=== PATIENT | male | born 1955 | race Asian ===

== ENCOUNTER 2022-06-24 14:23 | Inpatient (IN) | payer MEDICARE ==
[2022-06-24 15:42] LABS: #Lymphocytes 1.3 thou/uL (1.20-3.40); #Monocytes 0.8 thou/uL (0.11-0.59); #Neutrophils 8.6 thou/uL (1.40-6.50); %Basophils 0.3 % (0.0-1.0); %Eosinophils 0.2 % (0.0-10.0); %Lymphocytes 11.8 % (21.0-51.0); %Monocytes 7.6 % (0.0-10.0); %Neutrophils 80.1 % (42.0-75.0); Hemoglobin 15.3 g/dL (14.0-18.0); Mean Corpuscular Hemoglobin 30.8 pg (27.0-31.0); Mean Corpuscular Volume 93.3 fL (78.0-98.0); Mean Platelet Volume 7.9 fL (7.4-10.4); Platelet Count 175 thou/uL (130-400); RBC Distribution Width 12.3 % (11.5-14.5); Red Blood Cell (RBC) Count 4.97 mill/uL (4.70-6.10); White Blood Cell (WBC) Count 10.7 thou/uL (4.8-10.8)
[2022-06-24 15:47] LABS: Bilirubin Negative (Negative); Blood, Urine Negative (Negative); Clarity Clear (Clear); Glucose, Urine (Dipstick) Normal (Negative); Ketone, Urine 20 mg/dL (Negative); Leukocyte Negative Leu/uL (Negative); Nitrite Negative (Negative); Protein, Urine (Dipstick) 10 mg/dL (Neg-Trace); Specific Gravity, Urine 1.028 (1.002-1.036); Urobilinogen Normal mg/dL (Less than 2); pH, Urine 5.5 (5.0-9.0)
[2022-06-24] MEDS ORDERED: Ketorolac Tromethamine 30 MG/ML VIAL ONE (15:57)
[2022-06-24 16:05] LABS: ALT (SGPT) 22 U/L (8-55); AST (SGOT) 24 U/L (5-34); Albumin 4.2 g/dL (3.4-4.8); Alkaline Phosphatase 58 U/L (40-110); Anion Gap 14 mmol/L (10-20); BUN (Urea Nitrogen) 15 mg/dL (8.4-25.7); Bilirubin, Total 1.1 mg/dL (0.2-1.2); Calc. Creatinine Clearance 0 mL/min (70-130); Calcium 8.8 mg/dL (7.8-10.44); Carbon Dioxide 23 mmol/L (23-31); Chloride 104 mmol/L (98-107); Estimated GFR 56; Glucose 123 mg/dL (80-115); Potassium 3.9 mmol/L (3.5-5.1); Protein, Total 7.2 g/dL (5.8-8.1); Sodium 137 mmol/L (136-145)
[2022-06-24] MEDS ORDERED: Ondansetron PF 4 MG/2 ML Vial IVP PRN (17:18)
[2022-06-24] MEDS ORDERED: Acetaminophen 325 MG TAB PO PRN (17:18)
[2022-06-24] MEDS ORDERED: Ondansetron ODT 4 MG TAB PO PRN (17:18)
[2022-06-24 17:19] LABS: SARS-CoV-2 NAA Rapid Test Not Detected (NotDetected)
[2022-06-24] MEDS ORDERED: diphenhydrAMINE 50 MG/ML VIAL IVP PRN (17:26)
[2022-06-24] MEDS ORDERED: hydrALAZINE 20 MG/ML VIAL SLOW IVP PRN ×2 (17:28)
[2022-06-24 18:17] LABS: PTT 31.4 sec (22.9-36.1); Prothrombin Time 13.4 sec (12.0-14.7)
[2022-06-24] MEDS: cefTRIAXone\\ROCEPHIN 1 GM in Sodium Chloride 0.9% 100 ML IVPB SCH (20:20)
[2022-06-24] MEDS: Sodium Chloride 0.9% 1,000 ML IV SCH (20:20)
[2022-06-24] MEDS: Tamsulosin HCl 0.4 MG CAP PO SCH (20:21)
[2022-06-24] MEDS: Famotidine 20 MG TAB PO SCH (20:21)
[2022-06-24] MEDS: Morphine 2 MG/ML VIAL SLOW IVP PRN (20:21)
[2022-06-24] MEDS: Famotidine/PF 20 mg/2ml Vial SLOW IVP SCH (20:23)
[2022-06-25 02:22] VITALS: BMI 29.7
[2022-06-25] MEDS: Sodium Chloride 0.9% 1,000 ML IV SCH ×3 (04:43→19:56)
[2022-06-25 05:25] LABS: #Eosinphils 0.2 thou/uL (0.0-0.7); #Lymphocytes 1.5 thou/uL (1.20-3.40); #Monocytes 1.1 thou/uL (0.11-0.59); #Neutrophils 5.5 thou/uL (1.40-6.50); %Basophils 0.6 % (0.0-1.0); %Eosinophils 2.6 % (0.0-10.0); %Monocytes 12.7 % (0.0-10.0); %Neutrophils 66.1 % (42.0-75.0); Hemoglobin 13.5 g/dL (14.0-18.0); Mean Corpuscular HGB CONC 32.5 g/dL (32.0-36.0); Mean Corpuscular Hemoglobin 30.8 pg (27.0-31.0); Mean Corpuscular Volume 94.7 fL (78.0-98.0); Mean Platelet Volume 7.6 fL (7.4-10.4); Platelet Count 153 thou/uL (130-400); RBC Distribution Width 12.4 % (11.5-14.5); Red Blood Cell (RBC) Count 4.38 mill/uL (4.70-6.10); White Blood Cell (WBC) Count 8.4 thou/uL (4.8-10.8)
[2022-06-25 05:54] LABS: Anion Gap 11 mmol/L (10-20); BUN (Urea Nitrogen) 17 mg/dL (8.4-25.7); Calc. Creatinine Clearance 70 mL/min (70-130); Calcium 8.1 mg/dL (7.8-10.44); Carbon Dioxide 24 mmol/L (23-31); Chloride 108 mmol/L (98-107); Estimated GFR 63; Glucose 101 mg/dL (80-115); Sodium 139 mmol/L (136-145)
[2022-06-25] MEDS ORDERED: Midazolam HCl 2 mg/2 ml Vial ONE (07:11)
[2022-06-25] MEDS ORDERED: fentaNYL Citrate/PF 100 MCG/2 ML SYRINGE ONE (07:11)
[2022-06-25] MEDS ORDERED: HYDROmorphone 2 MG/ML VIAL ONE ×2 (07:12→08:04)
[2022-06-25] MEDS ORDERED: Iopamidol 30 ML ONE (08:06)
[2022-06-25] MEDS ORDERED: Levofloxacin 500 mg/D5W 100 ml Premix Bag ONE (08:09)
[2022-06-25] MEDS ORDERED: Glycopyrrolate 0.2 MG/ML 5 ML SYRINGE ONE (08:21)
[2022-06-25] MEDS ORDERED: Rocuronium Bromide 10 MG/ML (10ML VIAL) ONE (08:21)
[2022-06-25] MEDS ORDERED: Lidocaine 1% PF 5 ML VIAL ONE (08:21)
[2022-06-25] MEDS ORDERED: PROPOFOL 200 MG/20 ML VIAL ONE (08:21)
[2022-06-25] MEDS ORDERED: Ketorolac Tromethamine 30 MG/ML VIAL ONE (08:21)
[2022-06-25] MEDS ORDERED: Ondansetron PF 4 MG/2 ML Vial ONE (08:21)
[2022-06-25] MEDS ORDERED: Dexamethasone 20 MG/5 ML VIAL ONE (08:21)
[2022-06-25] MEDS ORDERED: ePHEDrine 50 MG/ML VIAL ONE (08:21)
[2022-06-25] MEDS ORDERED: Neostigmine Methylsulfate 3 MG/3 ML SYRINGE ONE (08:21)
[2022-06-25] MEDS: Famotidine 20 MG TAB PO SCH ×2 (09:00→19:53)
[2022-06-25] MEDS ORDERED: Amlodipine 5 mg/Benazepril 20 mg CAP PO SCH (09:00)
[2022-06-25] MEDS: Famotidine/PF 20 mg/2ml Vial SLOW IVP SCH ×2 (09:00→19:53)
[2022-06-25] MEDS ORDERED: HYDROcodone/Acetaminophen 7.5/325 mg Tablet PO PRN ×2 (09:38)
[2022-06-25] MEDS ORDERED: HYDROcodone/Acetaminophen 5/325 mg Tablet PO PRN (09:38)
[2022-06-25] MEDS ORDERED: Acetaminophen 500 MG TAB PO PRN (09:38)
[2022-06-25] MEDS ORDERED: Phenazopyridine HCl 100 MG TAB PO PRN (10:11)
[2022-06-25] MEDS: Morphine 2 MG/ML VIAL SLOW IVP PRN ×2 (11:55→15:58)
[2022-06-25] MEDS: Oxybutynin 5 MG TAB PO SCH (11:57)
[2022-06-25] MEDS: Tamsulosin HCl 0.4 MG CAP PO SCH ×2 (11:57→19:53)
[2022-06-25] MEDS: cefTRIAXone\\ROCEPHIN 1 GM in Sodium Chloride 0.9% 100 ML IVPB SCH (19:52)
[2022-06-25] MEDS: Docusate 100 MG CAP PO SCH (19:53)
[2022-06-25] MEDS ORDERED: Bisacodyl 5 MG TAB PO PRN (21:34)
[2022-06-25] MEDS ORDERED: Senokot S 8.6-50 MG TAB PO PRN (21:34)
[2022-06-26] MEDS: Sodium Chloride 0.9% 1,000 ML IV SCH (07:00)
[2022-06-26] MEDS ORDERED: Amlodipine 5 MG TAB PO SCH (09:00)
[2022-06-26] MEDS ORDERED: Lisinopril 10 MG TAB PO SCH (09:00)
[2022-06-26] MEDS: Docusate 100 MG CAP PO SCH (09:07)
[2022-06-26] MEDS: Oxybutynin 5 MG TAB PO SCH (09:07)
[2022-06-26] MEDS: Tamsulosin HCl 0.4 MG CAP PO SCH (09:07)
[2022-06-26] MEDS: Famotidine 20 MG TAB PO SCH (09:07)
[2022-06-26] MEDS: Famotidine/PF 20 mg/2ml Vial SLOW IVP SCH (09:08)
[2022-06-26] MEDS: Morphine 2 MG/ML VIAL SLOW IVP PRN (11:34)
[2022-06-26 12:21] VITALS: BP 175/73; TEMP 96.3
[2022-06-30 15:13] LABS: CA Oxalate Monohydrate 10 % (.); Color Orange (.); Stone Weight 57 mg (.); Uric Acid 90 % (.)
== END 2022-06-26 14:54 | disposition home or self-care (01) | DRG 661 ==
LOC: ERS 14:23 → SURG A 18:39
PROVIDERS: ADMIT Internal Medicine; ATTEND Internal Medicine
PROC: 0T778DZ Dilation of Left Ureter with Intraluminal Device, Via Natural or Artificial Opening Endoscopic (ICD-10-PCS; principal; 2022-06-25)
PROC: 0TC78ZZ Extirpation of Matter from Left Ureter, Via Natural or Artificial Opening Endoscopic (ICD-10-PCS; 2022-06-25)
PROC: BT1FZZZ Fluoroscopy of Left Kidney, Ureter and Bladder (ICD-10-PCS; 2022-06-25)
DX: N13.2 Hydronephrosis with renal and ureteral calculous obstruction (principal); Z20.822 Contact with and (suspected) exposure to COVID-19; N40.0 Benign prostatic hyperplasia without lower urinary tract symptoms; I10 Essential (primary) hypertension; N32.81 Overactive bladder
CPT/HCPCS: 36415; 71045; 74176; 74420; 80048; 80053; 81003; 82365; 85025; 85610; 85730; 87086; 88300; 96372; C1769; C2617; J0696; J1100; J1170; J1885; J1956; J2250; J2270; J2405; J2704; J3490; J7050; Q9967; U0002